=== PATIENT | female | born 1990 | race Caucasian/White ===

== ENCOUNTER 2016-08-11 12:02 | Emergency (ER) | payer MEDICAID ==
[2016-08-11] MEDS ORDERED: RABIES IMMUNE GLOBULIN 300 UNITS/2 ML IM STA (12:55)
[2016-08-11] MEDS ORDERED: RABIES VACCINE 2.5 UNIT SYRINGE IM ONE ×2 (12:55→13:06)
== END 2016-08-11 13:35 | disposition home or self-care (01) ==
DX: Z20.3 Contact with and (suspected) exposure to rabies (principal); Z23 Encounter for immunization; R03.0 Elevated blood-pressure reading, without diagnosis of hypertension

== ENCOUNTER 2016-08-14 11:17 | Emergency (ER) | payer MEDICAID ==
[2016-08-14] MEDS ORDERED: RABIES VACCINE 2.5 UNIT SYRINGE IM ONE ×2 (12:48→12:59)
== END 2016-08-14 13:17 | disposition home or self-care (01) ==
DX: Z23 Encounter for immunization (principal)

== ENCOUNTER 2016-08-18 12:02 | Emergency (ER) | payer MEDICAID ==
[2016-08-18] MEDS ORDERED: RABIES VACCINE 2.5 UNIT SYRINGE IM ONE (13:32)
== END 2016-08-18 13:50 | disposition home or self-care (01) ==
DX: Z23 Encounter for immunization (principal)

== ENCOUNTER 2016-08-25 08:10 | Emergency (ER) | payer MEDICAID ==
[2016-08-25] MEDS ORDERED: RABIES VACCINE 2.5 UNIT SYRINGE IM ONE ×2 (08:17→08:33)
== END 2016-08-25 08:59 | disposition home or self-care (01) ==
DX: Z23 Encounter for immunization (principal); Z20.3 Contact with and (suspected) exposure to rabies